=== PATIENT | male | born 1970 | race Caucasian/White ===

== ENCOUNTER 2016-08-24 14:52 | Emergency (ER) | payer MEDICAID, OTHER ==
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
[2016-08-24 15:31] VITALS: BP 138/84
--- NOTE | 2016-08-27 18:35 | CR ---
EXAM DATE: 08/24/16 PATIENT'S AGE: 46 Patient: TOÑO CLEMONS Facility: [place], [place] Site . Site : 1970 Study: XRay Extremity Right TIB/FIB [id number]/10/2017 3:46:11 PM Ordering Physician: Chun Jordan Final Report: Indication: Surgery 5 months ago. Re-injured and broke screws 1 month ago. Pain. Technique: Right tibia and fibula two views. Comparison: Right ankle same day. Findings: Plate and screw fixation of the distal tibia and fibula are incompletely imaged. The fractured screws in the distal tibial fixation are not visualized on this study. No evidence of acute fracture or dislocation. No additional osseous abnormality. Soft tissues as imaged are unremarkable. Impression: No acute osseous abnormality. Dictated by Aristeo Ledezma MD @ 08/24/2016 3:56:31 PM Dictated by: Aristeo Ledezma MD @ 08/24/2016 15:56:38 (Electronic Signature) Report Signed by Proxy and Original Signed Document filed in the Medical Record. [facility]
--- NOTE | 2016-08-27 18:36 | CR ---
EXAM DATE: 08/24/16 PATIENT'S AGE: 46 Patient: TOÑO CLEMONS Facility: [place], [place] Site . Site : 1970 Study: XRay Extremity Right ankle [id number]/10/2017 3:47:12 PM Ordering Physician: Chun Jordan Final Report: Indication: Surgery 5 months ago. Re-injured 1 month ago. Technique: Right ankle three views. Comparison: Right tibia and fibula same day. Findings: Plain screw fixation of the distal tibia and fibula are demonstrated. The distal 6 screws in the fixation of the distal tibia are fractured. Plate and screw fixation of the distal fibula shows no evidence of complication. Extensive callus formation about the distal tibia consistent with healing fracture. No evidence of acute fracture or dislocation. Impression: The distal 6 screws in the fixation of the distal tibia are fractured. No evidence of acute osseous abnormality. Dictated by Aristeo Ledezma MD @ 08/24/2016 3:54:15 PM Dictated by: Aristeo Ledezma MD @ 08/24/2016 15:54:29 (Electronic Signature) Report Signed by Proxy and Original Signed Document filed in the Medical Record. [facility]
== END 2016-08-24 16:35 | disposition home or self-care (01) ==
LOC: MW.ED 14:52
DX: S82.201G Unspecified fracture of shaft of right tibia, subsequent encounter for closed fracture with delayed healing (principal); F17.210 Nicotine dependence, cigarettes, uncomplicated; Z98.890 Other specified postprocedural states; V19.3XXD Pedal cyclist (driver) (passenger) injured in unspecified nontraffic accident, subsequent encounter
CPT/HCPCS: 73590-26-RT; 73590-RT; 73610-26-RT; 73610-RT; 99283